=== PATIENT | female | born 1985 | race Caucasian/White ===

== ENCOUNTER 2022-10-29 18:12 | Emergency (ER) | payer MEDICAID ==
[~2022-10-29] VITALS: Ht 160 cm; Wt 127.3 kg
[2022-10-29 18:15] VITALS: BP 165/100
== END 2022-10-29 19:22 | disposition home or self-care (01) ==
LOC: ER 18:12
DX: S93.492A Sprain of other ligament of left ankle, initial encounter (principal); X58.XXXA Exposure to other specified factors, initial encounter; Y93.89 Activity, other specified; Y92.89 Other specified places as the place of occurrence of the external cause; Y99.8 Other external cause status
CPT/HCPCS: 29515; 73610; 99283; L1930

== ENCOUNTER 2023-03-20 09:44 | Emergency (ER) | payer MEDICAID ==
[~2023-03-20] VITALS: Ht 162.6 cm; Wt 126.6 kg
[2023-03-20 10:11] VITALS: BP 143/98; PULSE 91; RESP 17; TEMP 98.9; O2SAT 95
== END 2023-03-20 12:04 | disposition home or self-care (01) ==
LOC: ER 09:46
DX: R05.9 Cough, unspecified (principal)
CPT/HCPCS: 99281

== ENCOUNTER 2023-04-02 17:44 | Emergency (ER) | payer MEDICAID ==
[~2023-04-02] VITALS: Ht 162.6 cm; Wt 127.3 kg
[2023-04-02 18:06] VITALS: BP 147/98; PULSE 78; RESP 18; TEMP 97.1; O2SAT 99
[2023-04-02 19:13] LABS: BASOPHILS # (AUTO) 0.1 X10'3 (0-0.2); BASOPHILS % (AUTO) 1.2 % (0-1); EOSINOPHILS # (AUTO) 0.2 X10'3 (0-0.9); EOSINOPHILS % (AUTO) 2.3 % (0-6); HEMATOCRIT 41.4 % (35.0-45.0); HEMOGLOBIN 13.4 g/dl (12.0-16.0); LYMPHOCYTES # (AUTO) 2.5 X10'3 (1.1-4.8); LYMPHOCYTES % (AUTO) 29.2 % (21-51); MEAN CORPUSCULAR HEMOGLOBIN 27.1 PG (27.0-31.0); MEAN CORPUSCULAR HGB CONC 32.5 g/dL (33.0-36.5); MEAN CORPUSCULAR VOLUME 83.5 FL (78-98); MEAN PLATELET VOLUME 8.4 FL (7.4-10.4); MONOCYTES # (AUTO) 0.6 X10'3 (0-0.9); MONOCYTES % (AUTO) 7.2 % (2-12); NEUTROPHILS # (AUTO) 5.1 X10'3 (1.8-7.7); NEUTROPHILS % (AUTO) 60.1 % (42-75); PLATELET COUNT 311 X10'3 (140-440); RED BLOOD COUNT 4.95 X10'6 (4.20-5.60); RED CELL DISTRIBUTION WIDTH 15.2 % (11.5-14.5); WHITE BLOOD COUNT 8.4 X10'3 (4.5-11.0)
[2023-04-02 19:30] LABS: ALANINE AMINOTRANSFERASE 31 U/L (12-78); ALBUMIN 3.8 G/DL (3.4-5.0); ALBUMIN/GLOBULIN RATIO 0.9 (1.1-1.5); ALKALINE PHOSPHATASE 86 IU/L (46-116); ANION GAP 6 (8-16); ASPARTATE AMINO TRANSFERASE 19 U/L (10-37); BILIRUBIN,TOTAL 0.3 MG/DL (0.1-1.0); BLOOD UREA NITROGEN 9 MG/DL (7-18); CALCIUM 9.2 MG/DL (8.5-10.1); CHLORIDE 102 MMOL/L (99-107); CREATININE 0.75 MG/DL (0.40-0.90); GLUCOSE 90 MG/DL (70-104); SODIUM 136 MMOL/L (135-145); TOTAL CARBON DIOXIDE 28.3 MMOL/L (24-32); TOTAL PROTEIN 8.2 G/DL (6.4-8.2); eCRCL 89 ML/MIN; eGFR 87 ML/MIN
[2023-04-02 19:36] LABS: BILIRUBIN,URINE NEGATIVE (Neg); CLARITY,URINE SLIGHTLY CLOUDY (Clear); COLOR,URINE YELLOW (Yellow); GLUCOSE, URINE NEGATIVE (Neg); KETONES,URINE NEGATIVE (Neg); LEUKOCYTE ESTERASE ,URINE NEGATIVE (Neg); NITRITES, URINE NEGATIVE (Neg); OCCULT BLOOD,URINE NEGATIVE (Neg); PH,URINE 5.5 (4.8-8.0); PROTEIN,URINE NEGATIVE (Neg); UROBILINOGEN,URINE 0.2 E.U/dL (0.2-1.0)
[2023-04-02 19:47] LABS: UA COLLECTION TYPE CLN CATCH MIDSTREAM
[2023-04-02 19:48] LABS: BACTERIA,URINE FEW /HPF (Neg); RBC,URINE 0-2 /HPF (0-2); SQUAMOUS EPITHELIAL CELL,UR FEW /LPF (FEW); WBC,URINE 0-4 /HPF (0-4)
[2023-04-02 19:55] LABS: POTASSIUM 3.8 MMOL/L (3.5-5.1)
[2023-04-03] MEDS ORDERED: ondansetron 4mg rapidly disintigrating tab PO ONE (01:10)
[2023-04-03] MEDS ORDERED: ibuprofen tablet 400 MG TABLET PO ONE (01:10)
--- NOTE | 2023-04-03 01:18 | NUR ---
called phone number on file and it just rang and rang. Can't find the patient.
== END 2023-04-03 01:19 | disposition left against medical advice (07) ==
LOC: ER 17:45
DX: R10.9 Unspecified abdominal pain (principal)
CPT/HCPCS: 36415; 80053; 81001; 85025; 99283